=== PATIENT | female | born 1965 | race Caucasian/White ===

== ENCOUNTER 2016-10-12 07:13 | Inpatient (IN) | payer OTHER ==
[2016-09-28 13:59] VITALS: BP 119/87
[~2016-10-12] VITALS: Ht 172.7 cm; Wt 108.9 kg
[~2016-10-12 07:13] MED LIST: AMPH30TA2 PO; BACITRACIN 50,000 UNIT ONE; CLON0.1T PO; DIAZ5TAB4 PO; LEVO137T3 PO; NAPROXEN; QUET100T PO; TRANEXAMIC ACID 100 MG/ML, 10ML ONE
[2016-10-12] MEDS ORDERED: VANCOMYCIN PER PHARMACY MC PRN (07:30)
[2016-10-12] MEDS ORDERED: VANCOMYCIN 1,500 MG in SODIUM CHLORIDE 0.9% 250 ML IV ONE (08:00)
[2016-10-12] MEDS ORDERED: FENTANYL PF 250 MCG/5ML ONE (08:07)
[2016-10-12] MEDS ORDERED: MIDAZOLAM 1 MG/ML, 2ML ONE (08:07)
[2016-10-12] MEDS ORDERED: LACTATED RINGERS 1,000 ML IV SCH (08:13)
[2016-10-12] MEDS ORDERED: GABA300C10 PO (08:16)
[2016-10-12] MEDS ORDERED: ROPIvacaine/PF 0.5%, 20 ML ONE (08:39)
[2016-10-12] MEDS ORDERED: BUPIVACAINE/PF-EPI 0.25% 1:200K ONE (09:35)
[2016-10-12] MEDS ORDERED: BUPIVACAINE/PF 0.25% ONE (09:36)
[2016-10-12] MEDS ORDERED: KETAMINE 10 MG/ML, 20ML ONE (09:39)
[2016-10-12] MEDS ORDERED: ONDANSETRON 2MG/ML, 2ML IVPush PRN (10:30)
[2016-10-12] MEDS ORDERED: ACETAMINOPHEN 325 MG TABLET PO PRN (10:30)
[2016-10-12] MEDS ORDERED: PROMETHAZINE 25 MG/ML, 1ML IV PRN (10:30)
[2016-10-12] MEDS ORDERED: OXYcodone 5 MG/5 ML ORAL.SOL UDC PO PRN (10:30)
[2016-10-12] MEDS ORDERED: EPHEDRINE 50 MG/ML, 1ML IVPush PRN (10:30)
[2016-10-12] MEDS ORDERED: KETOROLAC 30 MG/1 ML IV PRN (10:30)
[2016-10-12] MEDS ORDERED: HYDROmorphone 1 MG/ML, 1ML IV PRN (10:30)
[2016-10-12] MEDS ORDERED: LABETALOL 5MG/ML, 20ML IV PRN (10:30)
[2016-10-12] MEDS ORDERED: MIDAZOLAM 1 MG/ML, 2ML IV PRN (10:30)
[2016-10-12] MEDS ORDERED: hydrALAzine 20 MG/ML, 1ML IV PRN (10:30)
[2016-10-12] MEDS ORDERED: HYDROcodone/APAP 7.5-325MG/15ML UDC PO PRN (10:30)
[2016-10-12] MEDS ORDERED: MEPERIDINE/PF 25MG/0.5ML IVPush PRN (10:30)
[2016-10-12] MEDS ORDERED: DIAZEPAM 5 MG TABLET PO PRN (13:30)
[2016-10-12] MEDS ORDERED: ALUMINUM/MAG/SIMETHICONE 30 ML UDC PO PRN (13:30)
[2016-10-12] MEDS ORDERED: MAGNESIUM HYDROXIDE 8%, 30ML UDC PO PRN (13:30)
[2016-10-12] MEDS ORDERED: PROMETHAZINE 25 MG/ML, 1ML IM PRN (13:30)
[2016-10-12] MEDS ORDERED: ONDANSETRON 4 MG TABLET PO PRN (13:30)
[2016-10-12] MEDS ORDERED: PROMETHAZINE 12.5 MG SUPP PR PRN (13:30)
[2016-10-12] MEDS ORDERED: DIPHENHYDRAMINE 50 MG CAPSULE PO PRN (13:30)
[2016-10-12] MEDS ORDERED: ZOLPIDEM 5MG TABLET PO PRN (13:30)
[2016-10-12] MEDS ORDERED: ONDANSETRON 2MG/ML, 2ML IV PRN (13:30)
[2016-10-12] MEDS ORDERED: SENNA/DOCUSATE TABLET PO PRN (13:30)
[2016-10-12] MEDS ORDERED: FENTANYL PF 100 MCG/2ML ONE (13:51)
[2016-10-12] MEDS ORDERED: HYDROcodone/APAP 7.5-325MG/15ML UDC ONE (13:51)
[2016-10-12] MEDS: FENTANYL PF 100 MCG/2ML IV PRN ×2 (13:55→14:05)
[2016-10-12] MEDS ORDERED: HYDROmorphone 2 MG/ML, 1ML ONE (14:17)
[2016-10-12] MEDS ORDERED: TRANEXAMIC ACID 1,500 MG in SODIUM CHLORIDE 0.9% 100 ML IVPB ONE (14:30)
[2016-10-12] MEDS ORDERED: SCOPOLAMINE PATCH, 1.5MG PATCH.TD72 TD SCH (15:30)
[2016-10-12] MEDS: SODIUM CHLORIDE 0.9% 1,000 ML IV SCH ×2 (15:45→21:18)
[2016-10-12] MEDS: HYDROmorphone 1 MG/ML, 1ML IV PRN ×2 (15:45→23:14)
[2016-10-12] MEDS ORDERED: PROPOFOL 10 MG/ML, 50ML ONE (16:17)
[2016-10-12] MEDS ORDERED: CEFAZOLIN 1,000 MG ONE (16:17)
[2016-10-12] MEDS ORDERED: ONDANSETRON 2MG/ML, 2ML ONE (16:17)
[2016-10-12] MEDS: CEFAZOLIN PMX 2GM/100ML 100 ML IVPB SCH (17:07)
[2016-10-12] MEDS: HYDROcodone/APAP 10/325 MG TABLET PO PRN ×2 (17:51→22:05)
[2016-10-12 18:46] VITALS: BP 118/78
[2016-10-12] MEDS: DOCUSATE 100 MG CAPSULE PO SCH (20:56)
[2016-10-12] MEDS: QUETIAPINE 100MG TABLET PO SCH (21:15)
[2016-10-12] MEDS: GABAPENTIN 300 MG CAPSULE PO SCH (21:15)
[2016-10-12 23:28] VITALS: BP 100/68
[2016-10-12 23:54] VITALS: BP 126/65
[2016-10-13] MEDS: HYDROmorphone 1 MG/ML, 1ML IV PRN (00:24)
[2016-10-13] MEDS: CEFAZOLIN PMX 2GM/100ML 100 ML IVPB SCH (01:00)
[2016-10-13] MEDS: HYDROcodone/APAP 10/325 MG TABLET PO PRN ×5 (02:40→20:53)
[2016-10-13 04:27] VITALS: BP 122/82
[2016-10-13] MEDS: SODIUM CHLORIDE 0.9% 1,000 ML IV SCH ×3 (05:01→21:01)
[2016-10-13] MEDS ORDERED: DEXAMETHASONE 4 MG/ML, 1ML IVPush SCH (06:00)
[2016-10-13] MEDS: DIAZEPAM 5 MG TABLET PO PRN ×4 (06:23→20:53)
[2016-10-13 06:45] VITALS: BP 124/75
[2016-10-13] MEDS ORDERED: ADDERALL 30 MG HOMEMEDPO PRN (08:00)
[2016-10-13] MEDS: TAMSULOSIN 0.4 MG CAP.ER.24H PO SCH (08:57)
[2016-10-13] MEDS: MULTIVITAMINS/MINERALS TABLET PO SCH (08:57)
[2016-10-13] MEDS: DOCUSATE 100 MG CAPSULE PO SCH ×2 (08:57→20:52)
[2016-10-13] MEDS: RIVAROXABAN 10 MG TABLET PO SCH (08:57)
[2016-10-13] MEDS: LEVOTHYROXINE 137 MCG TABLET PO SCH (08:57)
[2016-10-13] MEDS: PROBIOTIC HOMEMEDPO SCH (08:58)
[2016-10-13] MEDS ORDERED: PROBIOTIC PO SCH (09:00)
[2016-10-13] MEDS ORDERED: GABAPENTIN 300 MG CAPSULE PO SCH (09:00)
[2016-10-13] MEDS ORDERED: QUETIAPINE 100MG TABLET PO SCH (09:00)
[2016-10-13 10:45] LABS: HEMOGLOBIN 13.9 g/dL (11.7-16.4)
[2016-10-13 13:38] VITALS: BP 111/74
[2016-10-13] MEDS: KETOROLAC 30 MG/1 ML IV SCH ×2 (16:04→23:42)
[2016-10-13 19:38] VITALS: BP 109/74
[2016-10-13 20:42] VITALS: BP 143/86
[2016-10-13] MEDS: GABAPENTIN 300 MG CAPSULE PO SCH (20:52)
[2016-10-13] MEDS: QUETIAPINE 100MG TABLET PO SCH (20:53)
[2016-10-14] MEDS: HYDROcodone/APAP 10/325 MG TABLET PO PRN ×3 (00:54→10:32)
[2016-10-14] MEDS: DIAZEPAM 5 MG TABLET PO PRN ×2 (00:54→05:44)
[2016-10-14 03:12] VITALS: BP 100/64
[2016-10-14] MEDS: SODIUM CHLORIDE 0.9% 1,000 ML IV SCH (05:01)
[2016-10-14 07:37] VITALS: BP 114/79
[2016-10-14] MEDS: KETOROLAC 30 MG/1 ML IV SCH (08:12)
[2016-10-14] MEDS: PROBIOTIC HOMEMEDPO SCH (08:13)
[2016-10-14] MEDS: TAMSULOSIN 0.4 MG CAP.ER.24H PO SCH (08:16)
[2016-10-14] MEDS: DOCUSATE 100 MG CAPSULE PO SCH (08:17)
[2016-10-14] MEDS: LEVOTHYROXINE 137 MCG TABLET PO SCH ×2 (08:17→10:35)
[2016-10-14] MEDS: RIVAROXABAN 10 MG TABLET PO SCH (08:17)
[2016-10-14] MEDS: MULTIVITAMINS/MINERALS TABLET PO SCH (08:17)
[2016-10-14] MEDS ORDERED: HYDR-3307 PO (13:00)
[2016-10-14] MEDS ORDERED: RIVA10TA PO (13:01)
[2016-10-14] MEDS ORDERED: DOCU-30 PO (13:02)
[2016-10-14] MEDS ORDERED: ONDA4TAB7 PO (13:03)
[2016-10-14] MEDS ORDERED: CELE200C PO (13:03)
== END 2016-10-14 13:50 | disposition home or self-care (01) | DRG 462 ==
LOC: ORIP 07:13 → INTOOBSV 07:13 → OBSVTOIN 13:01 → 4NOR 15:19
PROVIDERS: ADMIT Orthopaedic Surgery Adult Reconstructive Orthopaedic Surgery; ATTEND Orthopaedic Surgery Adult Reconstructive Orthopaedic Surgery
PROC: 0SRD0J9 Replacement of Left Knee Joint with Synthetic Substitute, Cemented, Open Approach (ICD-10-PCS; 2016-10-12)
PROC: 3E0T3BZ Introduction of Anesthetic Agent into Peripheral Nerves and Plexi, Percutaneous Approach (ICD-10-PCS; 2016-10-12)
PROC: 0SRC0J9 Replacement of Right Knee Joint with Synthetic Substitute, Cemented, Open Approach (ICD-10-PCS; principal; 2016-10-12 09:00)
DX: M17.0 Bilateral primary osteoarthritis of knee (principal); F32.9 Major depressive disorder, single episode, unspecified; F90.9 Attention-deficit hyperactivity disorder, unspecified type; F41.9 Anxiety disorder, unspecified; E03.9 Hypothyroidism, unspecified; G25.81 Restless legs syndrome; Z79.899 Other long term (current) drug therapy; Z88.8 Allergy status to other drugs, medicaments and biological substances; Z98.84 Bariatric surgery status
CPT/HCPCS: 36415; 85014; 85018; C1713; G0378; J0690; J1100; J1170; J1885; J2250; J2405; J2704; J2795; J3010; J3370; J3490; C1776; J7030; J7050; J7120